=== PATIENT | female | born 1940 | race Caucasian/White ===

== ENCOUNTER 2023-05-06 09:27 | Outpatient (CLI) | payer MEDICARE, OTHER, SELFPAY | END 2023-05-06 09:28 | disposition home or self-care (01) | LOC: INJ CL 09:28 | PROVIDERS: PCP Family Medicine; Visit Provider Family Medicine | DX: M54.16 Radiculopathy, lumbar region (principal); M51.36 Other intervertebral disc degeneration, lumbar region | CPT/HCPCS: 62323; J0702; Q9966 ==